=== PATIENT | male | born 1965 | race African-American/Black ===

== ENCOUNTER 2018-10-07 22:19 | Inpatient (IN) | payer OTHER ==
[2018-10-08] MEDS ORDERED: BISACODYL (EC) 5 MG TAB PO
[2018-10-08] MEDS ORDERED: ACETAMINOPHEN 325 MG TAB PO
[2018-10-08] MEDS ORDERED: DOCUSATE SODIUM 100 MG CAP PO
[2018-10-08] MEDS ORDERED: NACL 0.9% 3 ML SYG IV
[2018-10-08] MEDS: HYDROmorphONE 0.5 MG/0.5 ML SYG IV ×5 (00:39→22:26)
[2018-10-08] MEDS: METOPROLOL 50 MG TAB PO ×3 (00:42→22:24)
[2018-10-08 00:50] LABS: ADD MAN DIFF? NO
[2018-10-08 00:53] LABS: WHITE BLOOD COUNT 4.3 10^3/ul (4.8-10.8)
[2018-10-08 00:53] LABS: BASOPHILS % 0.5 % (0.0-2.0); EOSINOPHILS # 0.1 10^3/ul (0.0-0.5); EOSINOPHILS % 1.4 % (0.0-7.0); HEMATOCRIT 34.2 % (42.0-52.0); HEMOGLOBIN 11.1 g/dl (14.0-18.0); LYMPHOCYTES # 1.8 10^3/ul (0.8-2.9); LYMPHOCYTES % 42.6 % (15.0-51.0); MEAN CORPUSCULAR HEMOGLOBIN 26.1 pg (29.0-33.0); MEAN CORPUSCULAR HGB CONC 32.5 g/dl (32.0-37.0); MEAN CORPUSCULAR VOLUME 80.3 fl (82.0-101.0); MEAN PLATELET VOLUME 10.1 fl (7.4-10.4); MONOCYTE # 0.6 10^3/ul (0.3-0.9); MONOCYTES % 13.3 % (0.0-11.0); NEUTROPHIL # 1.8 10^3/ul (1.6-7.5); NEUTROPHILS % 41.7 % (39.0-77.0); PLATELET COUNT 106 10^3/UL (140-415); RED BLOOD COUNT 4.26 10^6/ul (4.70-6.10); RED CELL DISTRIBUTION WIDTH 17.1 % (11.5-14.5)
[2018-10-08 01:11] LABS: ALANINE AMINOTRANSFERASE 81 IU/L (13-69); ALBUMIN 3.3 g/dl (3.3-4.9); ALKALINE PHOSPHATASE 118 IU/L (42-121); ANION GAP 8 (5-13); ASPARTATE AMINO TRANSFERASE 205 IU/L (15-46); BILIRUBIN,INDIRECT 0.6 mg/dl (0-1.1); BILIRUBIN,TOTAL 0.6 mg/dl (0.2-1.3); BLOOD UREA NITROGEN 4 mg/dl (7-20); CALCIUM 8.4 mg/dl (8.4-10.2); CARBON DIOXIDE 24 mmol/L (21-31); CHLORIDE 108 mmol/L (97-110); CREATININE 0.59 mg/dl (0.61-1.24); Estimated GFR > 60 mL/min (>60); GLUCOSE 120 mg/dl (70-220); MAGNESIUM 1.5 mg/dl (1.7-2.5); POTASSIUM 3.5 mmol/L (3.5-5.1); SODIUM 140 mmol/L (135-144)
[2018-10-08] MEDS: ONDANSETRON 4 MG INJ IV (01:59)
[2018-10-08] MEDS: SOD CHLORIDE 0.9% 1,000 ML IV ×2 (02:00→16:18)
[2018-10-08 02:11] LABS: ERYTHROCYTE SEDIMENTATION RATE 55 mm/Hr (0-20)
[2018-10-08 02:13] LABS: C-REACTIVE PROTEIN 2.3 mg/dl (0.0-0.9)
[2018-10-08] MEDS ORDERED: VANCOMYCIN IV PER PHARMACY XX (03:00)
[2018-10-08] MEDS: hydrALAzine 20 MG INJ IV ×2 (03:14→09:16)
[2018-10-08] MEDS: POTASSIUM CHLORIDE (SR) 20 MEQ TAB PO (03:33)
[2018-10-08] MEDS: PIPER-TAZO 3.375 GM IV (PMX) 100 ML IVPB ×4 (03:34→22:25)
[2018-10-08] MEDS: MAGNESIUM SULFATE 3 GM in DEXTROSE 5% 100 ML IVPB (03:43)
[2018-10-08] MEDS: VANCOMYCIN HCL 2 GM in SOD CHLORIDE 0.9% 500 ML IVPB (04:25)
[2018-10-08 05:15] LABS: ADD MAN DIFF? NO
[2018-10-08 05:20] LABS: WHITE BLOOD COUNT 3.9 10^3/ul (4.8-10.8)
[2018-10-08 05:20] LABS: BASOPHILS % 0.5 % (0.0-2.0); EOSINOPHILS # 0.1 10^3/ul (0.0-0.5); EOSINOPHILS % 2.3 % (0.0-7.0); HEMATOCRIT 37.2 % (42.0-52.0); HEMOGLOBIN 12.1 g/dl (14.0-18.0); LYMPHOCYTES # 1.8 10^3/ul (0.8-2.9); LYMPHOCYTES % 46.4 % (15.0-51.0); MEAN CORPUSCULAR HGB CONC 32.5 g/dl (32.0-37.0); MEAN PLATELET VOLUME 10.6 fl (7.4-10.4); MONOCYTE # 0.5 10^3/ul (0.3-0.9); NEUTROPHIL # 1.4 10^3/ul (1.6-7.5); NEUTROPHILS % 37.3 % (39.0-77.0); PLATELET COUNT 127 10^3/UL (140-415); POSITIVE DIFF @See below; RED BLOOD COUNT 4.65 10^6/ul (4.70-6.10); RED CELL DISTRIBUTION WIDTH 17.1 % (11.5-14.5)
[2018-10-08 05:33] LABS: HEMOGLOBIN A1C 5.5 % (0-5.9)
[2018-10-08] MEDS: LORAZEPAM 2 MG INJ IV ×3 (05:33→17:30)
[2018-10-08 05:38] LABS: IRON 63 ug/dl (35-150)
[2018-10-08 05:40] LABS: ETHANOL < 10.0 mg/dl (0-0)
[2018-10-08 05:44] LABS: ALANINE AMINOTRANSFERASE 80 IU/L (13-69); ALBUMIN 3.4 g/dl (3.3-4.9); ALBUMIN/GLOBULIN RATIO 0.68; ALKALINE PHOSPHATASE 132 IU/L (42-121); ANION GAP 8 (5-13); ASPARTATE AMINO TRANSFERASE 215 IU/L (15-46); BILIRUBIN,INDIRECT 0.6 mg/dl (0-1.1); BILIRUBIN,TOTAL 0.6 mg/dl (0.2-1.3); BLOOD UREA NITROGEN 3 mg/dl (7-20); CALCIUM 8.6 mg/dl (8.4-10.2); CARBON DIOXIDE 27 mmol/L (21-31); CHLORIDE 106 mmol/L (97-110); CHOL/HDL RATIO 2.8 RATIO; CHOLESTEROL 126 mg/dl (100-200); CREATININE 0.63 mg/dl (0.61-1.24); Estimated GFR > 60 mL/min (>60); GLUCOSE 109 mg/dl (70-220); HDL CHOLESTEROL 45 mg/dl (28-71); LDL CHOLESTEROL,CALCULATED 65 mg/dl; MAGNESIUM 1.7 mg/dl (1.7-2.5); POTASSIUM 3.6 mmol/L (3.5-5.1); SODIUM 141 mmol/L (135-144); TOTAL PROTEIN 8.4 g/dl (6.1-8.1); TRIGLYCERIDES 81 mg/dl (0-149)
[2018-10-08 05:48] LABS: % IRON SATURATION 16 % SAT (22-52); TOTAL IRON BINDING CAPACITY 397 ug/dl (241-421)
[2018-10-08 06:16] LABS: FERRITIN 48.1 ng/ml (11.1-264.0)
[2018-10-08 06:42] LABS: INR 1.11; PARTIAL THROMBOPLASTIN TIME 36.1 Sec (23.0-35.0); PROTIME 14.4 Sec (11.9-14.9); PT RATIO 1.1
[2018-10-08] MEDS: MULTIVITAMINS 10 ML, THIAMINE 100 MG, FOLIC ACID 1 MG in SOD CHLORIDE 0.9% 1,000 ML IVPB (06:43)
[2018-10-08 07:40] LABS: HEPATITIS B SURFACE ANTIGEN NEGATIVE (NEGATIVE)
[2018-10-08 07:57] LABS: HEPATITIS B SURFACE ANTIBODY NEGATIVE (NEGATIVE)
[2018-10-08 08:08] LABS: HEPATITIS C VIRAL ANTIBODY REACTIVE (NEGATIVE)
[2018-10-08] MEDS ORDERED: FOLIC ACID 1 MG TAB PO (09:00)
[2018-10-08] MEDS ORDERED: THIAMINE 100 MG TAB PO (09:00)
[2018-10-08] MEDS: BUPROPION 100 MG TAB PO (09:50)
[2018-10-08] MEDS: CHLORDIAZEPOXIDE 25 MG CAP PO ×3 (09:50→23:46)
[2018-10-08] MEDS: NIFEdipine (XL) 30 MG TAB PO (09:51)
[2018-10-08] MEDS: LISINOPRIL 20 MG TAB PO (09:51)
[2018-10-08 12:49] LABS: PROCALCITONIN 0.09 ng/mL (0.00-0.10)
[2018-10-08 13:20] LABS: AMPHETAMINE/METHAMPHETAMINE Negative (NEGATIVE); BARBITURATES Negative (NEGATIVE); BENZODIAZEPINES Negative (NEGATIVE); CANNABINOIDS Negative (NEGATIVE); COCAINE Negative (NEGATIVE); OPIATES Positive (NEGATIVE)
[2018-10-08] MEDS: NICOTINE (7 MG/24 HR) PATCH TRANSDERM (16:30)
[2018-10-08] MEDS: VANCOMYCIN HCL 1.25 GM in SOD CHLORIDE 0.9% 250 ML IVPB ×2 (16:38→20:56)
[2018-10-08] MEDS: DULOXETINE 30 MG CAP DR PO (22:22)
[2018-10-08] MEDS: QUETIAPINE 100 MG TAB PO (22:22)
[2018-10-08] MEDS: HEPARIN 5,000 UNIT/1 ML VIAL SC (22:25)
[2018-10-09] MEDS: PIPER-TAZO 3.375 GM IV (PMX) 100 ML IVPB ×4 (02:03→17:58)
[2018-10-09] MEDS: SOD CHLORIDE 0.9% 1,000 ML IV ×2 (04:41→20:32)
[2018-10-09 05:02] LABS: ADD MAN DIFF? NO
[2018-10-09 05:05] LABS: WHITE BLOOD COUNT 4.2 10^3/ul (4.8-10.8)
[2018-10-09 05:05] LABS: BASOPHILS % 0.5 % (0.0-2.0); EOSINOPHILS # 0.1 10^3/ul (0.0-0.5); EOSINOPHILS % 2.1 % (0.0-7.0); HEMOGLOBIN 11.6 g/dl (14.0-18.0); LYMPHOCYTES # 1.6 10^3/ul (0.8-2.9); LYMPHOCYTES % 38.2 % (15.0-51.0); MEAN CORPUSCULAR HGB CONC 32.2 g/dl (32.0-37.0); MEAN CORPUSCULAR VOLUME 80.7 fl (82.0-101.0); MEAN PLATELET VOLUME 10.1 fl (7.4-10.4); MONOCYTE # 0.4 10^3/ul (0.3-0.9); MONOCYTES % 8.3 % (0.0-11.0); NEUTROPHIL # 2.1 10^3/ul (1.6-7.5); NEUTROPHILS % 50.4 % (39.0-77.0); NUCLEATED RED BLOOD CELLS% 0.5 /100WBC (0.0-0.0); PLATELET COUNT 116 10^3/UL (140-415); POSITIVE DIFF @See below; RED BLOOD COUNT 4.46 10^6/ul (4.70-6.10); RED CELL DISTRIBUTION WIDTH 17.2 % (11.5-14.5)
[2018-10-09 05:31] LABS: C-REACTIVE PROTEIN 1.8 mg/dl (0.0-0.9)
[2018-10-09 05:31] LABS: ALANINE AMINOTRANSFERASE 64 IU/L (13-69); ALBUMIN 3.2 g/dl (3.3-4.9); ALBUMIN/GLOBULIN RATIO 0.66; ALKALINE PHOSPHATASE 116 IU/L (42-121); ANION GAP 6 (5-13); ASPARTATE AMINO TRANSFERASE 150 IU/L (15-46); BILIRUBIN,INDIRECT 0.9 mg/dl (0-1.1); BILIRUBIN,TOTAL 0.9 mg/dl (0.2-1.3); BLOOD UREA NITROGEN 7 mg/dl (7-20); CALCIUM 8.7 mg/dl (8.4-10.2); CARBON DIOXIDE 28 mmol/L (21-31); CHLORIDE 105 mmol/L (97-110); CREATININE 0.85 mg/dl (0.61-1.24); Estimated GFR > 60 mL/min (>60); GLUCOSE 82 mg/dl (70-220); POTASSIUM 3.9 mmol/L (3.5-5.1); SODIUM 139 mmol/L (135-144)
[2018-10-09 05:46] LABS: HEMOGLOBIN A1C 5.4 % (0-5.9)
[2018-10-09] MEDS: VANCOMYCIN HCL 1.25 GM in SOD CHLORIDE 0.9% 250 ML IVPB ×3 (06:06→20:32)
[2018-10-09 06:33] LABS: ERYTHROCYTE SEDIMENTATION RATE 50 mm/Hr (0-20)
[2018-10-09] MEDS: NIFEdipine (XL) 30 MG TAB PO (08:54)
[2018-10-09] MEDS: BUPROPION 100 MG TAB PO (08:55)
[2018-10-09] MEDS: METOPROLOL 50 MG TAB PO ×2 (08:55→20:26)
[2018-10-09] MEDS: MULTIVITAMINS THERAPEUTIC TAB PO (08:55)
[2018-10-09] MEDS: THIAMINE 100 MG TAB PO (08:55)
[2018-10-09] MEDS: LISINOPRIL 20 MG TAB PO (08:56)
[2018-10-09] MEDS: CHLORDIAZEPOXIDE 25 MG CAP PO ×2 (08:56→12:10)
[2018-10-09] MEDS: FOLIC ACID 1 MG TAB PO (08:56)
[2018-10-09] MEDS: DULOXETINE 30 MG CAP DR PO ×2 (08:57→20:25)
[2018-10-09] MEDS: HEPARIN 5,000 UNIT/1 ML VIAL SC ×2 (08:59→20:31)
[2018-10-09] MEDS: HYDROmorphONE 0.5 MG/0.5 ML SYG IV ×2 (08:59→17:57)
[2018-10-09] MEDS: NICOTINE (7 MG/24 HR) PATCH TRANSDERM (09:00)
[2018-10-09] MEDS: LIDOCAINE 1% (MPF) 5 ML VIAL INJ (16:30)
[2018-10-09] MEDS: DAKINS 0.0125%(1/40) 473 ML SOLUTION TP (17:51)
[2018-10-09] MEDS: QUETIAPINE 100 MG TAB PO (20:25)
[2018-10-10] MEDS: HYDROmorphONE 0.5 MG/0.5 ML SYG IV ×5 (00:04→21:32)
[2018-10-10] MEDS: PIPER-TAZO 3.375 GM IV (PMX) 100 ML IVPB ×4 (00:18→17:22)
[2018-10-10 05:27] LABS: ADD MAN DIFF? NO
[2018-10-10 05:31] LABS: BASOPHILS % 0.5 % (0.0-2.0); EOSINOPHILS # 0.1 10^3/ul (0.0-0.5); EOSINOPHILS % 1.5 % (0.0-7.0); HEMATOCRIT 35.5 % (42.0-52.0); HEMOGLOBIN 11.5 g/dl (14.0-18.0); LYMPHOCYTES # 1.3 10^3/ul (0.8-2.9); LYMPHOCYTES % 33.2 % (15.0-51.0); MEAN CORPUSCULAR HEMOGLOBIN 26.4 pg (29.0-33.0); MEAN CORPUSCULAR HGB CONC 32.4 g/dl (32.0-37.0); MEAN CORPUSCULAR VOLUME 81.6 fl (82.0-101.0); MEAN PLATELET VOLUME 10.8 fl (7.4-10.4); MONOCYTE # 0.4 10^3/ul (0.3-0.9); MONOCYTES % 8.9 % (0.0-11.0); NEUTROPHIL # 2.2 10^3/ul (1.6-7.5); NEUTROPHILS % 55.4 % (39.0-77.0); PLATELET COUNT 131 10^3/UL (140-415); POSITIVE DIFF @See below; RED BLOOD COUNT 4.35 10^6/ul (4.70-6.10); RED CELL DISTRIBUTION WIDTH 17.5 % (11.5-14.5)
[2018-10-10 05:53] LABS: ALANINE AMINOTRANSFERASE 78 IU/L (13-69); ALBUMIN 3.1 g/dl (3.3-4.9); ALBUMIN/GLOBULIN RATIO 0.63; ALKALINE PHOSPHATASE 109 IU/L (42-121); ANION GAP 7 (5-13); ASPARTATE AMINO TRANSFERASE 178 IU/L (15-46); BILIRUBIN,INDIRECT 0.6 mg/dl (0-1.1); BILIRUBIN,TOTAL 0.6 mg/dl (0.2-1.3); BLOOD UREA NITROGEN 9 mg/dl (7-20); CALCIUM 8.8 mg/dl (8.4-10.2); CARBON DIOXIDE 25 mmol/L (21-31); CHLORIDE 106 mmol/L (97-110); CREATININE 0.77 mg/dl (0.61-1.24); Estimated GFR > 60 mL/min (>60); GLUCOSE 77 mg/dl (70-220); POTASSIUM 3.9 mmol/L (3.5-5.1); SODIUM 138 mmol/L (135-144)
[2018-10-10 05:56] LABS: VANCOMYCIN,TROUGH 21.6 ug/ml (10.0-20.0)
[2018-10-10 08:42] LABS: ANISOCYTOSIS 2+ (0-0); BAND NEUTROPHILS #M 0.1 10^3/ul (0.0-0.6); BAND NEUTROPHILS % (M) 3 % (0-4); BASOPHILS % (M) 1 % (0-2); BURR CELLS 1+ (0-0); EOSINOPHILS % (M) 3 % (0-7); ERYTHROBLAST% (NRBC) (M) 1 % (0-0); GIANT THROMBO% (M) 20 % (0-0); HYPOCHROMASIA 1+ (0-0); LYMPHOCYTES % (M) 25 % (15-51); MONOCYTE #M 0.3 10^3/ul (0.3-0.9); MONOCYTES % (M) 9 % (0-11); MYELOCYTES % (M) 1 % (0-0); PLATELET ESTIMATE NORMAL; POIKILOCYTOSIS 3+ (0-0); POLYCHROMASIA 1+ (0-0); PROMYELOCYTES % (M) 1 % (0-0); REACTIVE LYMPHOCYTES #M 0.1 10^3/ul (0.0-0.0); REACTIVE LYMPHOCYTES% (M) 3 % (0-0); SEG NEUT #M 2.2 10^3/ul (1.6-7.5); SEGMENTED NEUTROPHILS (M) % 54 % (39-77); SMUDGE%M 74 % (0-0); TARGET CELLS 1+ (0-0)
[2018-10-10] MEDS: THIAMINE 100 MG TAB PO (08:51)
[2018-10-10] MEDS: MULTIVITAMINS THERAPEUTIC TAB PO (08:51)
[2018-10-10] MEDS: FOLIC ACID 1 MG TAB PO (08:51)
[2018-10-10] MEDS: LISINOPRIL 20 MG TAB PO (08:51)
[2018-10-10] MEDS: DULOXETINE 30 MG CAP DR PO ×2 (08:52→21:23)
[2018-10-10] MEDS: NIFEdipine (XL) 30 MG TAB PO (08:52)
[2018-10-10] MEDS: METOPROLOL 50 MG TAB PO ×2 (08:52→21:23)
[2018-10-10] MEDS: HEPARIN 5,000 UNIT/1 ML VIAL SC ×2 (08:53→21:24)
[2018-10-10] MEDS: CLOTRIMAZOLE 1% 30 GM CR TOP (08:59)
[2018-10-10] MEDS: NICOTINE (7 MG/24 HR) PATCH TRANSDERM (09:00)
[2018-10-10] MEDS ORDERED: CHLORDIAZEPOXIDE 25 MG CAP PO (09:00)
[2018-10-10] MEDS: VANCOMYCIN HCL 1.25 GM in SOD CHLORIDE 0.9% 250 ML IVPB ×2 (09:03→21:24)
[2018-10-10] MEDS: SOD CHLORIDE 0.9% 1,000 ML IV ×2 (09:06→11:12)
[2018-10-10] MEDS: QUETIAPINE 100 MG TAB PO (21:23)
[2018-10-11] MEDS: PIPER-TAZO 3.375 GM IV (PMX) 100 ML IVPB ×5 (00:35→23:35)
[2018-10-11 06:06] LABS: ADD MAN DIFF? NO
[2018-10-11 06:10] LABS: WHITE BLOOD COUNT 4.4 10^3/ul (4.8-10.8)
[2018-10-11 06:10] LABS: BASOPHILS % 0.7 % (0.0-2.0); EOSINOPHILS # 0.1 10^3/ul (0.0-0.5); EOSINOPHILS % 2.1 % (0.0-7.0); HEMATOCRIT 37.8 % (42.0-52.0); LYMPHOCYTES # 2.1 10^3/ul (0.8-2.9); LYMPHOCYTES % 47.9 % (15.0-51.0); MEAN CORPUSCULAR HEMOGLOBIN 26.1 pg (29.0-33.0); MEAN CORPUSCULAR HGB CONC 31.7 g/dl (32.0-37.0); MEAN CORPUSCULAR VOLUME 82.2 fl (82.0-101.0); MEAN PLATELET VOLUME 11.5 fl (7.4-10.4); MONOCYTE # 0.4 10^3/ul (0.3-0.9); MONOCYTES % 8.9 % (0.0-11.0); NEUTROPHIL # 1.7 10^3/ul (1.6-7.5); NEUTROPHILS % 39.7 % (39.0-77.0); PLATELET COUNT 169 10^3/UL (140-415); RED CELL DISTRIBUTION WIDTH 17.9 % (11.5-14.5)
[2018-10-11 06:39] LABS: ALANINE AMINOTRANSFERASE 92 IU/L (13-69); ALBUMIN 3.2 g/dl (3.3-4.9); ALBUMIN/GLOBULIN RATIO 0.65; ALKALINE PHOSPHATASE 100 IU/L (42-121); ANION GAP 8 (5-13); ASPARTATE AMINO TRANSFERASE 192 IU/L (15-46); BILIRUBIN,INDIRECT 0.6 mg/dl (0-1.1); BILIRUBIN,TOTAL 0.6 mg/dl (0.2-1.3); BLOOD UREA NITROGEN 11 mg/dl (7-20); CALCIUM 8.6 mg/dl (8.4-10.2); CARBON DIOXIDE 25 mmol/L (21-31); CHLORIDE 103 mmol/L (97-110); CREATININE 0.78 mg/dl (0.61-1.24); Estimated GFR > 60 mL/min (>60); GLUCOSE 70 mg/dl (70-220); POTASSIUM 3.9 mmol/L (3.5-5.1); SODIUM 136 mmol/L (135-144); TOTAL PROTEIN 8.1 g/dl (6.1-8.1)
[2018-10-11] MEDS: VANCOMYCIN HCL 1.25 GM in SOD CHLORIDE 0.9% 250 ML IVPB ×2 (08:31→21:07)
[2018-10-11] MEDS: THIAMINE 100 MG TAB PO (08:32)
[2018-10-11] MEDS: NIFEdipine (XL) 30 MG TAB PO (08:32)
[2018-10-11] MEDS: DULOXETINE 30 MG CAP DR PO ×2 (08:32→21:07)
[2018-10-11] MEDS: METOPROLOL 50 MG TAB PO ×2 (08:32→21:07)
[2018-10-11] MEDS: FOLIC ACID 1 MG TAB PO (08:32)
[2018-10-11] MEDS: MULTIVITAMINS THERAPEUTIC TAB PO (08:32)
[2018-10-11] MEDS: LISINOPRIL 20 MG TAB PO (08:32)
[2018-10-11] MEDS: CLOTRIMAZOLE 1% 30 GM CR TOP (08:33)
[2018-10-11] MEDS: NICOTINE (7 MG/24 HR) PATCH TRANSDERM (08:33)
[2018-10-11] MEDS: HEPARIN 5,000 UNIT/1 ML VIAL SC ×2 (08:34→21:07)
[2018-10-11] MEDS: HYDROmorphONE 0.5 MG/0.5 ML SYG IV ×3 (08:46→21:08)
[2018-10-11 21:02] LABS: VANCOMYCIN,TROUGH 11.3 ug/ml (10.0-20.0)
[2018-10-11] MEDS: QUETIAPINE 100 MG TAB PO (21:07)
[2018-10-12 05:58] LABS: ADD MAN DIFF? NO
[2018-10-12 06:09] LABS: BASOPHILS % 0.5 % (0.0-2.0); EOSINOPHILS # 0.1 10^3/ul (0.0-0.5); EOSINOPHILS % 1.5 % (0.0-7.0); HEMATOCRIT 39.5 % (42.0-52.0); HEMOGLOBIN 12.3 g/dl (14.0-18.0); LYMPHOCYTES % 51.9 % (15.0-51.0); MEAN CORPUSCULAR HEMOGLOBIN 25.8 pg (29.0-33.0); MEAN CORPUSCULAR HGB CONC 31.1 g/dl (32.0-37.0); MONOCYTE # 0.3 10^3/ul (0.3-0.9); MONOCYTES % 7.6 % (0.0-11.0); NEUTROPHIL # 1.5 10^3/ul (1.6-7.5); NEUTROPHILS % 38.2 % (39.0-77.0); PLATELET COUNT 204 10^3/UL (140-415); RED BLOOD COUNT 4.76 10^6/ul (4.70-6.10); RED CELL DISTRIBUTION WIDTH 18.1 % (11.5-14.5)
[2018-10-12 06:09] LABS: WHITE BLOOD COUNT 3.9 10^3/ul (4.8-10.8)
[2018-10-12] MEDS: PIPER-TAZO 3.375 GM IV (PMX) 100 ML IVPB ×2 (06:11→12:04)
[2018-10-12 06:37] LABS: ALBUMIN 3.2 g/dl (3.3-4.9); ANION GAP 7 (5-13); BLOOD UREA NITROGEN 10 mg/dl (7-20); CALCIUM 8.8 mg/dl (8.4-10.2); CARBON DIOXIDE 25 mmol/L (21-31); CHLORIDE 105 mmol/L (97-110); CREATININE 0.78 mg/dl (0.61-1.24); GLUCOSE 99 mg/dl (70-220); MAGNESIUM 1.7 mg/dl (1.7-2.5); PHOSPHORUS 3.8 mg/dl (2.5-4.9); POTASSIUM 3.7 mmol/L (3.5-5.1); SODIUM 137 mmol/L (135-144)
[2018-10-12] MEDS: NICOTINE (7 MG/24 HR) PATCH TRANSDERM (08:39)
[2018-10-12] MEDS: LISINOPRIL 20 MG TAB PO (08:40)
[2018-10-12] MEDS: SENNA TAB PO (08:40)
[2018-10-12] MEDS: DULOXETINE 30 MG CAP DR PO ×2 (08:40→20:42)
[2018-10-12] MEDS: METOPROLOL 50 MG TAB PO ×2 (08:40→20:42)
[2018-10-12] MEDS: NIFEdipine (XL) 30 MG TAB PO (08:41)
[2018-10-12] MEDS: MULTIVITAMINS THERAPEUTIC TAB PO (08:41)
[2018-10-12] MEDS: THIAMINE 100 MG TAB PO (08:41)
[2018-10-12] MEDS: CLOTRIMAZOLE 1% 30 GM CR TOP (08:41)
[2018-10-12] MEDS: FOLIC ACID 1 MG TAB PO (08:41)
[2018-10-12] MEDS: HEPARIN 5,000 UNIT/1 ML VIAL SC ×2 (08:46→20:39)
[2018-10-12] MEDS: HYDROmorphONE 0.5 MG/0.5 ML SYG IV ×3 (08:51→22:59)
[2018-10-12] MEDS ORDERED: SENNA/DOCUSATE NA (8.6MG/50MG) TAB PO (09:30)
[2018-10-12] MEDS: VANCOMYCIN HCL 1.25 GM in SOD CHLORIDE 0.9% 250 ML IVPB ×2 (09:44→20:42)
[2018-10-12] MEDS: POLYETHYLENE GLYCOL 17 GM PACKET PO (09:45)
[2018-10-12] MEDS: DAKINS 0.0125%(1/40) 473 ML SOLUTION TP (16:43)
[2018-10-12] MEDS: CIPROFLOXACIN 500 MG TAB PO (17:12)
[2018-10-12] MEDS: QUETIAPINE 100 MG TAB PO (20:42)
[2018-10-13] MEDS: HYDROmorphONE 0.5 MG/0.5 ML SYG IV ×4 (04:26→19:42)
[2018-10-13] MEDS: CIPROFLOXACIN 500 MG TAB PO ×2 (05:29→17:04)
[2018-10-13 05:31] LABS: ADD MAN DIFF? NO
[2018-10-13 05:36] LABS: WHITE BLOOD COUNT 4.5 10^3/ul (4.8-10.8)
[2018-10-13 05:37] LABS: BASOPHILS % 0.4 % (0.0-2.0); EOSINOPHILS # 0.1 10^3/ul (0.0-0.5); EOSINOPHILS % 1.8 % (0.0-7.0); HEMATOCRIT 38.5 % (42.0-52.0); HEMOGLOBIN 11.9 g/dl (14.0-18.0); LYMPHOCYTES % 44.9 % (15.0-51.0); MEAN CORPUSCULAR HEMOGLOBIN 26.2 pg (29.0-33.0); MEAN CORPUSCULAR HGB CONC 30.9 g/dl (32.0-37.0); MEAN CORPUSCULAR VOLUME 84.6 fl (82.0-101.0); MEAN PLATELET VOLUME 10.5 fl (7.4-10.4); MONOCYTE # 0.4 10^3/ul (0.3-0.9); MONOCYTES % 9.3 % (0.0-11.0); NEUTROPHILS % 43.4 % (39.0-77.0); PLATELET COUNT 205 10^3/UL (140-415); RED BLOOD COUNT 4.55 10^6/ul (4.70-6.10); RED CELL DISTRIBUTION WIDTH 18.4 % (11.5-14.5)
[2018-10-13 06:05] LABS: ALBUMIN 3.1 g/dl (3.3-4.9); ANION GAP 6 (5-13); BLOOD UREA NITROGEN 13 mg/dl (7-20); CALCIUM 8.8 mg/dl (8.4-10.2); CARBON DIOXIDE 25 mmol/L (21-31); CHLORIDE 105 mmol/L (97-110); CREATININE 0.78 mg/dl (0.61-1.24); GLUCOSE 95 mg/dl (70-220); MAGNESIUM 1.7 mg/dl (1.7-2.5); PHOSPHORUS 3.7 mg/dl (2.5-4.9); POTASSIUM 4.1 mmol/L (3.5-5.1); SODIUM 136 mmol/L (135-144)
[2018-10-13] MEDS: NICOTINE (7 MG/24 HR) PATCH TRANSDERM (09:00)
[2018-10-13] MEDS: POLYETHYLENE GLYCOL 17 GM PACKET PO (09:06)
[2018-10-13] MEDS: LISINOPRIL 20 MG TAB PO (09:07)
[2018-10-13] MEDS: FOLIC ACID 1 MG TAB PO (09:08)
[2018-10-13] MEDS: DULOXETINE 30 MG CAP DR PO ×2 (09:08→20:30)
[2018-10-13] MEDS: MULTIVITAMINS THERAPEUTIC TAB PO (09:08)
[2018-10-13] MEDS: NIFEdipine (XL) 30 MG TAB PO (09:08)
[2018-10-13] MEDS: METOPROLOL 50 MG TAB PO ×2 (09:08→20:31)
[2018-10-13] MEDS: THIAMINE 100 MG TAB PO (09:08)
[2018-10-13] MEDS: HEPARIN 5,000 UNIT/1 ML VIAL SC ×2 (09:09→20:32)
[2018-10-13] MEDS: VANCOMYCIN HCL 1.25 GM in SOD CHLORIDE 0.9% 250 ML IVPB (09:09)
[2018-10-13] MEDS: CLOTRIMAZOLE 1% 30 GM CR TOP (09:10)
[2018-10-13] MEDS: DAKINS 0.0125%(1/40) 473 ML SOLUTION TP (09:10)
[2018-10-13] MEDS: DOXYCYCLINE 100 MG TAB PO (20:30)
[2018-10-13] MEDS: QUETIAPINE 100 MG TAB PO (20:30)
[2018-10-14] MEDS: HYDROmorphONE 0.5 MG/0.5 ML SYG IV ×4 (01:23→20:06)
[2018-10-14 05:41] LABS: ADD MAN DIFF? NO
[2018-10-14 05:51] LABS: BASOPHILS % 0.8 % (0.0-2.0); EOSINOPHILS # 0.1 10^3/ul (0.0-0.5); EOSINOPHILS % 1.4 % (0.0-7.0); HEMATOCRIT 39.8 % (42.0-52.0); HEMOGLOBIN 12.4 g/dl (14.0-18.0); LYMPHOCYTES # 1.5 10^3/ul (0.8-2.9); LYMPHOCYTES % 42.1 % (15.0-51.0); MEAN CORPUSCULAR HEMOGLOBIN 26.1 pg (29.0-33.0); MEAN CORPUSCULAR HGB CONC 31.2 g/dl (32.0-37.0); MEAN CORPUSCULAR VOLUME 83.8 fl (82.0-101.0); MEAN PLATELET VOLUME 10.6 fl (7.4-10.4); MONOCYTE # 0.4 10^3/ul (0.3-0.9); MONOCYTES % 10.1 % (0.0-11.0); NEUTROPHIL # 1.7 10^3/ul (1.6-7.5); NEUTROPHILS % 45.3 % (39.0-77.0); PLATELET COUNT 233 10^3/UL (140-415); RED BLOOD COUNT 4.75 10^6/ul (4.70-6.10); RED CELL DISTRIBUTION WIDTH 18.4 % (11.5-14.5)
[2018-10-14 05:51] LABS: WHITE BLOOD COUNT 3.7 10^3/ul (4.8-10.8)
[2018-10-14] MEDS: CIPROFLOXACIN 500 MG TAB PO ×2 (06:16→17:05)
[2018-10-14 06:20] LABS: ALANINE AMINOTRANSFERASE 101 IU/L (13-69); ALBUMIN 3.4 g/dl (3.3-4.9); ALKALINE PHOSPHATASE 99 IU/L (42-121); ANION GAP 9 (5-13); ASPARTATE AMINO TRANSFERASE 164 IU/L (15-46); BILIRUBIN,INDIRECT 0.4 mg/dl (0-1.1); BILIRUBIN,TOTAL 0.4 mg/dl (0.2-1.3); BLOOD UREA NITROGEN 11 mg/dl (7-20); CALCIUM 9.1 mg/dl (8.4-10.2); CARBON DIOXIDE 24 mmol/L (21-31); CHLORIDE 106 mmol/L (97-110); Estimated GFR > 60 mL/min (>60); GLUCOSE 92 mg/dl (70-220); SODIUM 139 mmol/L (135-144); TOTAL PROTEIN 8.2 g/dl (6.1-8.1)
[2018-10-14 06:47] LABS: MAGNESIUM 1.7 mg/dl (1.7-2.5)
[2018-10-14] MEDS: LISINOPRIL 20 MG TAB PO (08:54)
[2018-10-14] MEDS: FOLIC ACID 1 MG TAB PO (08:54)
[2018-10-14] MEDS: THIAMINE 100 MG TAB PO (08:54)
[2018-10-14] MEDS: MULTIVITAMINS THERAPEUTIC TAB PO (08:54)
[2018-10-14] MEDS: DOXYCYCLINE 100 MG TAB PO ×2 (08:54→20:08)
[2018-10-14] MEDS: DULOXETINE 30 MG CAP DR PO ×2 (08:55→20:08)
[2018-10-14] MEDS: POLYETHYLENE GLYCOL 17 GM PACKET PO (08:55)
[2018-10-14] MEDS: CLOTRIMAZOLE 1% 30 GM CR TOP (08:55)
[2018-10-14] MEDS: DAKINS 0.0125%(1/40) 473 ML SOLUTION TP (08:55)
[2018-10-14] MEDS: NIFEdipine (XL) 30 MG TAB PO (08:55)
[2018-10-14] MEDS: HEPARIN 5,000 UNIT/1 ML VIAL SC ×2 (08:59→20:12)
[2018-10-14] MEDS: NICOTINE (7 MG/24 HR) PATCH TRANSDERM (09:00)
[2018-10-14] MEDS: METOPROLOL 50 MG TAB PO ×2 (09:07→20:10)
[2018-10-14] MEDS: QUETIAPINE 100 MG TAB PO (20:08)
[2018-10-15] MEDS: HYDROmorphONE 0.5 MG/0.5 ML SYG IV ×5 (01:30→21:22)
[2018-10-15 05:17] LABS: ADD MAN DIFF? NO
[2018-10-15 05:20] LABS: WHITE BLOOD COUNT 4.2 10^3/ul (4.8-10.8)
[2018-10-15 05:20] LABS: BASOPHILS % 0.5 % (0.0-2.0); EOSINOPHILS # 0.1 10^3/ul (0.0-0.5); EOSINOPHILS % 1.4 % (0.0-7.0); HEMATOCRIT 38.7 % (42.0-52.0); HEMOGLOBIN 12.3 g/dl (14.0-18.0); LYMPHOCYTES # 2.5 10^3/ul (0.8-2.9); LYMPHOCYTES % 58.1 % (15.0-51.0); MEAN CORPUSCULAR HEMOGLOBIN 26.7 pg (29.0-33.0); MEAN CORPUSCULAR HGB CONC 31.8 g/dl (32.0-37.0); MEAN CORPUSCULAR VOLUME 83.9 fl (82.0-101.0); MEAN PLATELET VOLUME 9.9 fl (7.4-10.4); MONOCYTE # 0.4 10^3/ul (0.3-0.9); MONOCYTES % 9.7 % (0.0-11.0); NEUTROPHIL # 1.3 10^3/ul (1.6-7.5); NEUTROPHILS % 30.3 % (39.0-77.0); PLATELET COUNT 256 10^3/UL (140-415); RED BLOOD COUNT 4.61 10^6/ul (4.70-6.10); RED CELL DISTRIBUTION WIDTH 18.6 % (11.5-14.5)
[2018-10-15 05:46] LABS: ALANINE AMINOTRANSFERASE 111 IU/L (13-69); ALBUMIN 3.4 g/dl (3.3-4.9); ALBUMIN/GLOBULIN RATIO 0.73; ALKALINE PHOSPHATASE 93 IU/L (42-121); ANION GAP 7 (5-13); ASPARTATE AMINO TRANSFERASE 181 IU/L (15-46); BILIRUBIN,INDIRECT 0.4 mg/dl (0-1.1); BILIRUBIN,TOTAL 0.4 mg/dl (0.2-1.3); BLOOD UREA NITROGEN 13 mg/dl (7-20); CALCIUM 9.1 mg/dl (8.4-10.2); CARBON DIOXIDE 24 mmol/L (21-31); CHLORIDE 106 mmol/L (97-110); CREATININE 0.72 mg/dl (0.61-1.24); Estimated GFR > 60 mL/min (>60); GLUCOSE 96 mg/dl (70-220); POTASSIUM 4.2 mmol/L (3.5-5.1); SODIUM 137 mmol/L (135-144)
[2018-10-15] MEDS: CIPROFLOXACIN 500 MG TAB PO ×2 (05:47→17:15)
[2018-10-15] MEDS: MULTIVITAMINS THERAPEUTIC TAB PO (08:40)
[2018-10-15] MEDS: METOPROLOL 50 MG TAB PO ×2 (08:41→21:19)
[2018-10-15] MEDS: LISINOPRIL 20 MG TAB PO (08:41)
[2018-10-15] MEDS: POLYETHYLENE GLYCOL 17 GM PACKET PO (08:42)
[2018-10-15] MEDS: DULOXETINE 30 MG CAP DR PO ×2 (08:42→21:19)
[2018-10-15] MEDS: NIFEdipine (XL) 30 MG TAB PO (08:42)
[2018-10-15] MEDS: DOXYCYCLINE 100 MG TAB PO ×2 (08:42→21:19)
[2018-10-15] MEDS: FOLIC ACID 1 MG TAB PO (08:42)
[2018-10-15] MEDS: THIAMINE 100 MG TAB PO (08:42)
[2018-10-15] MEDS: HEPARIN 5,000 UNIT/1 ML VIAL SC ×2 (08:47→21:22)
[2018-10-15] MEDS: NICOTINE (7 MG/24 HR) PATCH TRANSDERM (08:48)
[2018-10-15] MEDS: DAKINS 0.0125%(1/40) 473 ML SOLUTION TP (08:48)
[2018-10-15] MEDS: CLOTRIMAZOLE 1% 30 GM CR TOP (08:48)
[2018-10-15] MEDS: QUETIAPINE 100 MG TAB PO (21:19)
[2018-10-16] MEDS: HYDROmorphONE 0.5 MG/0.5 ML SYG IV ×6 (01:58→22:28)
[2018-10-16] MEDS: CIPROFLOXACIN 500 MG TAB PO ×2 (06:08→17:21)
[2018-10-16] MEDS: POLYETHYLENE GLYCOL 17 GM PACKET PO (08:18)
[2018-10-16] MEDS: MULTIVITAMINS THERAPEUTIC TAB PO (08:19)
[2018-10-16] MEDS: DULOXETINE 30 MG CAP DR PO ×2 (08:19→21:03)
[2018-10-16] MEDS: FOLIC ACID 1 MG TAB PO (08:20)
[2018-10-16] MEDS: METOPROLOL 50 MG TAB PO ×2 (08:20→21:04)
[2018-10-16] MEDS: LISINOPRIL 20 MG TAB PO (08:20)
[2018-10-16] MEDS: DOXYCYCLINE 100 MG TAB PO ×2 (08:20→21:03)
[2018-10-16] MEDS: HEPARIN 5,000 UNIT/1 ML VIAL SC ×2 (08:21→21:05)
[2018-10-16] MEDS: NIFEdipine (XL) 30 MG TAB PO (08:21)
[2018-10-16] MEDS: NICOTINE (7 MG/24 HR) PATCH TRANSDERM (08:21)
[2018-10-16] MEDS: THIAMINE 100 MG TAB PO (08:22)
[2018-10-16] MEDS: CLOTRIMAZOLE 1% 30 GM CR TOP (08:22)
[2018-10-16] MEDS: DAKINS 0.0125%(1/40) 473 ML SOLUTION TP (08:22)
[2018-10-16] MEDS: QUETIAPINE 100 MG TAB PO (21:03)
[2018-10-17] MEDS: HYDROmorphONE 0.5 MG/0.5 ML SYG IV ×3 (02:35→16:31)
[2018-10-17] MEDS: CIPROFLOXACIN 500 MG TAB PO ×2 (05:48→17:19)
[2018-10-17] MEDS: NICOTINE (7 MG/24 HR) PATCH TRANSDERM (09:00)
[2018-10-17] MEDS: METOPROLOL 50 MG TAB PO ×2 (09:00→20:24)
[2018-10-17] MEDS: NIFEdipine (XL) 30 MG TAB PO (09:00)
[2018-10-17] MEDS: LISINOPRIL 20 MG TAB PO (09:00)
[2018-10-17] MEDS: HEPARIN 5,000 UNIT/1 ML VIAL SC ×2 (09:13→20:25)
[2018-10-17] MEDS: MULTIVITAMINS THERAPEUTIC TAB PO (09:14)
[2018-10-17] MEDS: THIAMINE 100 MG TAB PO (09:14)
[2018-10-17] MEDS: DOXYCYCLINE 100 MG TAB PO ×2 (09:14→20:23)
[2018-10-17] MEDS: FOLIC ACID 1 MG TAB PO (09:14)
[2018-10-17] MEDS: POLYETHYLENE GLYCOL 17 GM PACKET PO (09:15)
[2018-10-17] MEDS: DAKINS 0.0125%(1/40) 473 ML SOLUTION TP (09:17)
[2018-10-17] MEDS: CLOTRIMAZOLE 1% 30 GM CR TOP (09:17)
[2018-10-17] MEDS: DULOXETINE 30 MG CAP DR PO ×2 (09:18→20:23)
[2018-10-17] MEDS: OXYCODONE/ACETAMINOPHEN (10/325) TAB PO (20:07)
[2018-10-17] MEDS: QUETIAPINE 100 MG TAB PO (20:23)
[2018-10-18] MEDS: HYDROmorphONE 0.5 MG/0.5 ML SYG IV ×4 (00:36→23:38)
[2018-10-18] MEDS: CIPROFLOXACIN 500 MG TAB PO ×2 (06:23→17:05)
[2018-10-18] MEDS: DOXYCYCLINE 100 MG TAB PO ×2 (08:37→20:32)
[2018-10-18] MEDS: THIAMINE 100 MG TAB PO (08:37)
[2018-10-18] MEDS: LISINOPRIL 20 MG TAB PO (08:37)
[2018-10-18] MEDS: METOPROLOL 50 MG TAB PO ×2 (08:37→20:32)
[2018-10-18] MEDS: NIFEdipine (XL) 30 MG TAB PO (08:38)
[2018-10-18] MEDS: POLYETHYLENE GLYCOL 17 GM PACKET PO (08:38)
[2018-10-18] MEDS: FOLIC ACID 1 MG TAB PO (08:38)
[2018-10-18] MEDS: MULTIVITAMINS THERAPEUTIC TAB PO (08:38)
[2018-10-18] MEDS: DULOXETINE 30 MG CAP DR PO ×2 (08:38→20:32)
[2018-10-18] MEDS: NICOTINE (7 MG/24 HR) PATCH TRANSDERM (08:38)
[2018-10-18] MEDS: DAKINS 0.0125%(1/40) 473 ML SOLUTION TP (08:39)
[2018-10-18] MEDS: CLOTRIMAZOLE 1% 30 GM CR TOP (08:39)
[2018-10-18] MEDS: HEPARIN 5,000 UNIT/1 ML VIAL SC ×2 (08:40→20:34)
[2018-10-18] MEDS: QUETIAPINE 100 MG TAB PO (20:32)
[2018-10-19] MEDS: CIPROFLOXACIN 500 MG TAB PO ×2 (05:35→17:14)
[2018-10-19] MEDS: HYDROmorphONE 0.5 MG/0.5 ML SYG IV ×3 (05:36→17:46)
[2018-10-19] MEDS: DOXYCYCLINE 100 MG TAB PO ×2 (08:56→20:34)
[2018-10-19] MEDS: FOLIC ACID 1 MG TAB PO (08:56)
[2018-10-19] MEDS: POLYETHYLENE GLYCOL 17 GM PACKET PO (08:56)
[2018-10-19] MEDS: METOPROLOL 50 MG TAB PO ×2 (08:56→20:35)
[2018-10-19] MEDS: MULTIVITAMINS THERAPEUTIC TAB PO (08:56)
[2018-10-19] MEDS: DULOXETINE 30 MG CAP DR PO ×2 (08:57→20:35)
[2018-10-19] MEDS: NIFEdipine (XL) 30 MG TAB PO (08:57)
[2018-10-19] MEDS: LISINOPRIL 20 MG TAB PO (08:57)
[2018-10-19] MEDS: THIAMINE 100 MG TAB PO (08:57)
[2018-10-19] MEDS: HEPARIN 5,000 UNIT/1 ML VIAL SC ×2 (08:59→20:36)
[2018-10-19] MEDS: NICOTINE (7 MG/24 HR) PATCH TRANSDERM (09:00)
[2018-10-19] MEDS: DAKINS 0.0125%(1/40) 473 ML SOLUTION TP (09:02)
[2018-10-19] MEDS: CLOTRIMAZOLE 1% 30 GM CR TOP (09:02)
[2018-10-19] MEDS: QUETIAPINE 100 MG TAB PO (20:35)
[2018-10-20] MEDS: HYDROmorphONE 0.5 MG/0.5 ML SYG IV ×3 (01:41→15:17)
[2018-10-20] MEDS: CIPROFLOXACIN 500 MG TAB PO ×2 (05:41→17:48)
[2018-10-20 05:44] LABS: ADD MAN DIFF? NO
[2018-10-20 05:56] LABS: WHITE BLOOD COUNT 4.7 10^3/ul (4.8-10.8)
[2018-10-20 05:56] LABS: BASOPHILS % 0.8 % (0.0-2.0); EOSINOPHILS # 0.1 10^3/ul (0.0-0.5); EOSINOPHILS % 1.9 % (0.0-7.0); HEMATOCRIT 39.1 % (42.0-52.0); HEMOGLOBIN 12.5 g/dl (14.0-18.0); LYMPHOCYTES # 2.9 10^3/ul (0.8-2.9); LYMPHOCYTES % 61.4 % (15.0-51.0); MEAN CORPUSCULAR HEMOGLOBIN 26.4 pg (29.0-33.0); MEAN CORPUSCULAR VOLUME 82.7 fl (82.0-101.0); MEAN PLATELET VOLUME 10.8 fl (7.4-10.4); MONOCYTE # 0.5 10^3/ul (0.3-0.9); MONOCYTES % 9.5 % (0.0-11.0); NEUTROPHIL # 1.2 10^3/ul (1.6-7.5); NEUTROPHILS % 26.4 % (39.0-77.0); PLATELET COUNT 364 10^3/UL (140-415); RED BLOOD COUNT 4.73 10^6/ul (4.70-6.10); RED CELL DISTRIBUTION WIDTH 18.3 % (11.5-14.5)
[2018-10-20 06:37] LABS: ANION GAP 7 (5-13); BLOOD UREA NITROGEN 18 mg/dl (7-20); CALCIUM 9.6 mg/dl (8.4-10.2); CARBON DIOXIDE 25 mmol/L (21-31); CHLORIDE 106 mmol/L (97-110); CREATININE 0.78 mg/dl (0.61-1.24); Estimated GFR > 60 mL/min (>60); GLUCOSE 93 mg/dl (70-220); MAGNESIUM 1.5 mg/dl (1.7-2.5); PHOSPHORUS 4.4 mg/dl (2.5-4.9); POTASSIUM 4.1 mmol/L (3.5-5.1); SODIUM 138 mmol/L (135-144)
[2018-10-20] MEDS: POLYETHYLENE GLYCOL 17 GM PACKET PO (08:59)
[2018-10-20] MEDS: DOXYCYCLINE 100 MG TAB PO (08:59)
[2018-10-20] MEDS: DULOXETINE 30 MG CAP DR PO (08:59)
[2018-10-20] MEDS: NICOTINE (7 MG/24 HR) PATCH TRANSDERM (09:00)
[2018-10-20] MEDS: METOPROLOL 50 MG TAB PO (09:00)
[2018-10-20] MEDS: THIAMINE 100 MG TAB PO (09:01)
[2018-10-20] MEDS: HEPARIN 5,000 UNIT/1 ML VIAL SC (09:02)
[2018-10-20] MEDS: LISINOPRIL 20 MG TAB PO (09:02)
[2018-10-20] MEDS: MULTIVITAMINS THERAPEUTIC TAB PO (09:03)
[2018-10-20] MEDS: NIFEdipine (XL) 30 MG TAB PO (09:03)
[2018-10-20] MEDS: FOLIC ACID 1 MG TAB PO (09:03)
[2018-10-20] MEDS: DAKINS 0.0125%(1/40) 473 ML SOLUTION TP (09:05)
[2018-10-20] MEDS: CLOTRIMAZOLE 1% 30 GM CR TOP (09:06)
== END 2018-10-20 19:25 | DRG 623 ==
LOC: 5EC 10-12 01:07 → 2NE 22:19 → 5EC 10-08 21:44
PROC: 0JBN0ZZ Excision of Right Lower Leg Subcutaneous Tissue and Fascia, Open Approach (ICD-10-PCS; principal; 2018-10-09)
PROC: 0KBW0ZZ Excision of Left Foot Muscle, Open Approach (ICD-10-PCS; 2018-10-09)
PROC: 0HBRXZZ Excision of Toe Nail, External Approach (ICD-10-PCS; 2018-10-09)
PROC: 0HBRXZZ Excision of Toe Nail, External Approach (ICD-10-PCS; 2018-10-09)
PROC: 0HBRXZZ Excision of Toe Nail, External Approach (ICD-10-PCS; 2018-10-09)
PROC: 0HBRXZZ Excision of Toe Nail, External Approach (ICD-10-PCS; 2018-10-09)
PROC: 0HBRXZZ Excision of Toe Nail, External Approach (ICD-10-PCS; 2018-10-09)
PROC: 0HBRXZZ Excision of Toe Nail, External Approach (ICD-10-PCS; 2018-10-09)
PROC: 0HBRXZZ Excision of Toe Nail, External Approach (ICD-10-PCS; 2018-10-09)
PROC: 0HBRXZZ Excision of Toe Nail, External Approach (ICD-10-PCS; 2018-10-09)
PROC: 0HBRXZZ Excision of Toe Nail, External Approach (ICD-10-PCS; 2018-10-09)
PROC: 0HBRXZZ Excision of Toe Nail, External Approach (ICD-10-PCS; 2018-10-09)
DX: E11.621 Type 2 diabetes mellitus with foot ulcer (principal); D61.818 Other pancytopenia; M86.671 Other chronic osteomyelitis, right ankle and foot; F33.9 Major depressive disorder, recurrent, unspecified; L97.819 Non-pressure chronic ulcer of other part of right lower leg with unspecified severity; E11.42 Type 2 diabetes mellitus with diabetic polyneuropathy; L97.529 Non-pressure chronic ulcer of other part of left foot with unspecified severity; L97.519 Non-pressure chronic ulcer of other part of right foot with unspecified severity; D69.6 Thrombocytopenia, unspecified; F20.9 Schizophrenia, unspecified; F17.200 Nicotine dependence, unspecified, uncomplicated; I25.10 Atherosclerotic heart disease of native coronary artery without angina pectoris; B19.20 Unspecified viral hepatitis C without hepatic coma; F41.9 Anxiety disorder, unspecified; K70.10 Alcoholic hepatitis without ascites; I10 Essential (primary) hypertension; E11.69 Type 2 diabetes mellitus with other specified complication; M21.40 Flat foot [pes planus] (acquired), unspecified foot; E11.622 Type 2 diabetes mellitus with other skin ulcer; Z79.4 Long term (current) use of insulin; B35.1 Tinea unguium; F10.20 Alcohol dependence, uncomplicated; B95.62 Methicillin resistant Staphylococcus aureus infection as the cause of diseases classified elsewhere; M20.5X9 Other deformities of toe(s) (acquired), unspecified foot; Z59.0 Homelessness
CPT/HCPCS: 71045; 73620; 73718; 76705; 80048; 80053; 80061; 80069; 80202; 80307; 82306; 82728; 83036; 83540; 83735; 84100; 84145; 84443; 85025; 85610; 85651; 85730; 86140; 86706; 86803; 87070; 87081; 87340; 93306; 93922; 97163